=== PATIENT | male | born 1985 | race Two or more races ===

== ENCOUNTER 2020-05-15 10:03 | Inpatient (IN) | payer MEDICAID, OTHER ==
[~2020-05-15] VITALS: Ht 167.6 cm; Wt 94.1 kg
[2020-05-15] MEDS ORDERED: metroNIDAZOLE 500MG/100ML 100 ML IV ONE (11:30)
[2020-05-15] MEDS ORDERED: SODIUM CHLORIDE 0.9% 1,000 ML IV ONE ×2 (11:30)
[2020-05-15] MEDS ORDERED: PIPERACILLIN-TAZOB 3.375GM 100 ML IV ONE (11:30)
[2020-05-15 11:46] LABS: Basophils # (auto) 0.1 10 ^3/uL (0-0.2); Basophils % (auto) 0.4 % (0.0-2.0); Eosinophils # (auto) 0 10 ^3/uL (0-0.8); Eosinophils % (auto) 0.1 % (0.0-7.0); Hematocrit 41.3 % (41.0-53.0); Hemoglobin 14.3 g/dL (13.5-17.5); Lymphocytes # (auto) 2.1 10 ^3/uL (0.4-5.4); Lymphocytes % (auto) 11.7 % (10.0-50.0); Mean Corpuscular Hemoglobin 30.9 pg (28.0-32.0); Mean Corpuscular Hgb Conc. 34.7 g/dL (32.0-36.0); Mean Corpuscular Volume 89.1 fL (80.0-100.0); Monocytes % (auto) 5.7 % (0.0-12.0); Neutrophils # (auto) 14.8 10 ^3/uL (1.6-8.6); Neutrophils % (auto) 82.1 % (37.0-80.0); Nucleated Red Blood Cells % 0.1 %; Platelet Count (auto) 281 10^3/uL (140-450); Red Blood Cells 4.63 10^6/uL (4.5-5.90); Red Cell Distribution Width 13.6 % (11.8-14.3); White Blood Cell 18.1 10^3/uL (4.4-10.8)
[2020-05-15 12:24] LABS: Albumin 3.6 g/dL (3.4-5.0); Anion Gap 8 (5-15); Blood Urea Nitrogen 14 mg/dL (7-18); Carbon Dioxide 26 mmol/L (21-32); Chloride 100 mmol/L (98-107); Glucose 106 mg/dL (74-106); Lipase 58 U/L (73-393); Potassium 3.8 mmol/L (3.5-5.1); Sodium 134 mmol/L (136-145)
[2020-05-15 12:42] LABS: Alanine Aminotransferase 56 U/L (16-61); Alkaline Phosphatase 101 U/L (45-117); Aspartate Aminotransferase 23 U/L (15-37); BUN/Creatinine Ratio 12.4; GFR African American 97 mL/min; GFR Non-African American 80 mL/min; Total Protein 8.5 g/dL (6.4-8.2)
[2020-05-15] MEDS ORDERED: MORPHINE SULFATE 4 MG/ML SYR/VIAL IV ONE (16:30)
[2020-05-15] MEDS ORDERED: ONDANSETRON HCL 4 MG/2 ML VIAL IV ONE (16:30)
[2020-05-15] MEDS ORDERED: MORPHINE SULF INJ 2 MG/ML SYRINGE 1ML IV PRN ×2 (16:45)
[2020-05-15] MEDS ORDERED: NITROGLYCERIN 0.4 MG SL TAB SL PRN (16:45)
[2020-05-15] MEDS: D5W/SOD CHL 0.45% 1,000 ML IV SCH (21:41)
[2020-05-15] MEDS: FAMOTIDINE (10MG/ML) 2ML VL IV SCH (21:42)
[2020-05-15] MEDS: PIPERACILLIN-TAZOB 3.375GM 100 ML IV SCH (21:49)
[2020-05-16] MEDS: D5W/SOD CHL 0.45% 1,000 ML IV SCH ×3 (02:45→22:45)
[2020-05-16] MEDS: PIPERACILLIN-TAZOB 3.375GM 100 ML IV SCH ×5 (06:00→23:29)
[2020-05-16 06:02] LABS: Hematocrit 38.7 % (41.0-53.0); Hemoglobin 13.5 g/dL (13.5-17.5); Mean Corpuscular Hemoglobin 31.2 pg (28.0-32.0); Mean Corpuscular Hgb Conc. 34.8 g/dL (32.0-36.0); Mean Corpuscular Volume 89.7 fL (80.0-100.0); Platelet Count (auto) 259 10^3/uL (140-450); Red Blood Cells 4.32 10^6/uL (4.5-5.90); White Blood Cell 14.3 10^3/uL (4.4-10.8)
[2020-05-16 06:18] LABS: Basophils % (manual) 0 (0.0-2.0); Blast Cells 0; Myelocytes % 0; Promyelocytes % 0; Reactive Lymphocytes 0
[2020-05-16 07:04] LABS: Potassium 4.1 mmol/L (3.5-5.1)
[2020-05-16 07:09] LABS: Albumin 3.3 g/dL (3.4-5.0); BUN/Creatinine Ratio 12.7; Calcium 9.1 mg/dL (8.5-10.1)
[2020-05-16 07:14] LABS: Bilirubin, Total 1.3 mg/dL (0.2-1.0); Total Protein 7.9 g/dL (6.4-8.2)
[2020-05-16 08:17] LABS: Band Neutrophils % (manual) 8; Eosinophils % (manual) 2 (0-7); Lymphocytes % (manual) 7 (10.0-50.0); Metamyelocytes % 1; Monocytes % (manual) 8 (0-12)
[2020-05-16] MEDS: MORPHINE SULFATE 4 MG/ML SYR/VIAL IV PRN ×3 (08:47→23:41)
[2020-05-16] MEDS: FAMOTIDINE (10MG/ML) 2ML VL IV SCH (08:47)
[2020-05-16] MEDS: ONDANSETRON HCL 4 MG/2 ML VIAL IV PRN ×2 (08:48→23:41)
[2020-05-16 12:38] LABS: INR 1.12 (0.9-1.15); Partial Thromboplastin Time 29.1 sec (23.0-31.2)
[2020-05-16 19:06] LABS: Urine Bacteria NONE SEEN /hpf (None Seen); Urine Blood Negative /uL (Negative); Urine Specific Gravity 1.017 (1.001-1.035); Urine WBC <1 /hpf (0 - 3)
[2020-05-16 21:24] VITALS: BP 121/70
[2020-05-17] VITALS: BP 131/86
[2020-05-17 04:00] VITALS: BP 113/73
[2020-05-17] MEDS: metroNIDAZOLE 500MG/100ML 100 ML IV SCH ×3 (05:56→21:21)
[2020-05-17 06:22] VITALS: BP 124/79
[2020-05-17] MEDS: D5W/SOD CHL 0.45% 1,000 ML IV SCH ×2 (08:21→18:45)
[2020-05-17] MEDS: MORPHINE SULFATE 4 MG/ML SYR/VIAL IV PRN (08:39)
[2020-05-17] MEDS: ONDANSETRON HCL 4 MG/2 ML VIAL IV PRN ×2 (08:40→22:16)
[2020-05-17] MEDS ORDERED: OMNIPAQUE ORAL SOLN 500ml 12mg/ml PO ONE (09:29)
[2020-05-17] MEDS ORDERED: LIDOCAINE 2%HCL (LOCAL ANESTH.) INJ 20ML MDV ONE (10:40)
[2020-05-17] MEDS: levoFLOXacin 500MG 100 ML IV SCH (10:53)
[2020-05-17] MEDS: FAMOTIDINE (10MG/ML) 2ML VL IV SCH (10:53)
[2020-05-17] MEDS ORDERED: fentaNYL CITRATE 100 MCG/2 ML VL IV ONE (12:45)
[2020-05-17] MEDS ORDERED: MIDAZOLAM HCL 1MG/1ML-2 ML VIAL IV ONE (12:45)
[2020-05-17 13:35] LABS: Basophils # (auto) 0 10 ^3/uL (0-0.2); Basophils % (auto) 0.2 % (0.0-2.0); Eosinophils # (auto) 0.1 10 ^3/uL (0-0.8); Eosinophils % (auto) 0.7 % (0.0-7.0); Hematocrit 36.4 % (41.0-53.0); Hemoglobin 12.6 g/dL (13.5-17.5); Lymphocytes # (auto) 1.5 10 ^3/uL (0.4-5.4); Lymphocytes % (auto) 12.8 % (10.0-50.0); Mean Corpuscular Hemoglobin 30.9 pg (28.0-32.0); Mean Corpuscular Hgb Conc. 34.7 g/dL (32.0-36.0); Monocytes # (auto) 1.1 10 ^3/uL (0-1.3); Monocytes % (auto) 9.3 % (0.0-12.0); Neutrophils # (auto) 9.1 10 ^3/uL (1.6-8.6); Platelet Count (auto) 350 10^3/uL (140-450); Red Blood Cells 4.09 10^6/uL (4.5-5.90); Red Cell Distribution Width 13.5 % (11.8-14.3); White Blood Cell 11.9 10^3/uL (4.4-10.8)
[2020-05-17 13:57] LABS: BUN/Creatinine Ratio 16.1; Calcium 9.3 mg/dL (8.5-10.1); Magnesium 2.4 mg/dL (1.6-2.6)
[2020-05-17 17:00] VITALS: BP 124/79
[2020-05-17 22:00] VITALS: BP 116/70
[2020-05-17] MEDS: MORPHINE SULF INJ 2 MG/ML SYRINGE 1ML IV PRN (22:15)
[2020-05-17] MEDS ORDERED: ACETAMINOPHEN 325 MG TAB PO PRN (22:45)
[2020-05-18] MEDS: CLINDAMYCIN 600MG IV 50 ML IV SCH ×4 (00:03→21:50)
[2020-05-18] MEDS: D5W/SOD CHL 0.45% 1,000 ML IV SCH ×2 (05:09→15:34)
[2020-05-18] MEDS: MORPHINE SULF INJ 2 MG/ML SYRINGE 1ML IV PRN (05:16)
[2020-05-18] MEDS: ONDANSETRON HCL 4 MG/2 ML VIAL IV PRN (05:16)
[2020-05-18] MEDS: metroNIDAZOLE 500MG/100ML 100 ML IV SCH ×3 (06:30→21:50)
[2020-05-18 09:00] VITALS: BP 117/71
[2020-05-18] MEDS: FAMOTIDINE (10MG/ML) 2ML VL IV SCH (09:51)
[2020-05-18] MEDS: IBUPROFEN 600 MG TAB PO SCH ×2 (09:51→21:50)
[2020-05-18] MEDS: levoFLOXacin 500MG 100 ML IV SCH (09:51)
[2020-05-18 13:00] VITALS: BP 102/66
[2020-05-18 17:00] VITALS: BP 118/70
[2020-05-18] MEDS ORDERED: CLIN-203 PO (19:51)
[2020-05-18] MEDS ORDERED: LEVO500T21 PO (19:51)
[2020-05-18] MEDS ORDERED: METR500T PO (19:51)
[2020-05-18 20:28] VITALS: BP 120/72
== END 2020-05-18 21:40 | disposition home or self-care (01) | DRG 244 ==
LOC: ER 10:03 → OVERFLOW 10:04 → TELE-CENTR 05-17 13:09
PROVIDERS: ADMIT Hospitalist; ATTEND Hospitalist
DX: K57.20 Diverticulitis of large intestine with perforation and abscess without bleeding (principal); F17.210 Nicotine dependence, cigarettes, uncomplicated; L03.115 Cellulitis of right lower limb; Z53.29 Procedure and treatment not carried out because of patient's decision for other reasons; Z20.822 Contact with and (suspected) exposure to COVID-19
CPT/HCPCS: 36415; 71045; 74176; 80048; 80053; 81001; 83605; 83690; 83735; 84484; 85007; 85025; 85027; 85610; 85730; 87040; 87426; 93970; G0378; J1956; J2250; J2405; J2543; J3490

== ENCOUNTER 2022-03-14 01:00 | Emergency (ER) | payer MEDICAID ==
[~2022-03-14] VITALS: Ht 167.6 cm; Wt 101.3 kg
[~2022-03-14 01:00] MED LIST: CLIN-203 PO; LEVO500T31 PO; METR500T PO
[2022-03-14 01:23] VITALS: BP 136/95
[2022-03-14] MEDS ORDERED: AMOX-277 PO (01:44)
== END 2022-03-14 02:11 | disposition home or self-care (01) ==
LOC: ER 01:00
DX: H66.91 Otitis media, unspecified, right ear (principal)